=== PATIENT | male | born 1950 | race African-American/Black ===

== ENCOUNTER → 2016-12-03 07:46 | Outpatient (CLI) | payer OTHER ==
[2014-09-20 21:57] VITALS: BMI 50.3
[~2016-12-03 07:46] MED LIST: ALDACTONE50 MG PO; ASPIRIN EC81 M1 PO; BUPROBAN150 MG PO; CARDURA2 MG PO; CELEBREX200 MG PO; COZAAR100 MG PO; FIBERCON625 MG PO; HYDROCODONE-APA1 TAB PO; LIPITOR10 MG PO; NEXIUM40 MG PO; NORVASC10 MG PO; PROZAC20 MG PO; TOPROL XL50 MG PO; VITAMIN D31000 UNIT PO
== END | disposition home or self-care (01) ==
LOC: D.NM 07:46
DX: M25.561 Pain in right knee (principal); M25.562 Pain in left knee

== ENCOUNTER → 2016-12-09 09:40 | Outpatient (CLI) | payer OTHER ==
[2014-09-20 21:57] VITALS: BMI 50.3
[2016-12-09 11:15] LABS: ERYTHROCYTE SEDIMENTATION RATE 8 mm/hr (0-20)
== END | disposition home or self-care (01) ==
LOC: D.LAB 09:40
PROVIDERS: Orthopaedic Surgery
DX: T85.848A Pain due to other internal prosthetic devices, implants and grafts, initial encounter (principal)

== ENCOUNTER 2017-11-03 17:24 | Emergency (ER) | payer MEDICARE ==
[2014-09-20 21:57] VITALS: BMI 50.3
[2017-11-03 20:04] LABS: BASOPHILS 0.1 % (0-2); EOSINOPHILS 1.7 % (0-7); HEMATOCRIT 39.1 % (42.0-54.0); HEMOGLOBIN 12.6 g/dL (13.5-17.5); IMMATURE GRANULOCYTES 0.4 % (0-5); LYMPHOCYTES 14.2 % (15-50); MCH 28.6 pg (26.0-34.0); MCHC 32.2 g/dL (31.0-37.0); MCV 88.9 fL (80.0-100.0); MEAN PLATELET VOLUME 10.7 fL (7.4-10.4); MONOCYTES 11.4 % (2-11); NEUTROPHILS 72.2 % (40-80); PLATELET COUNT 204 10x3/uL (130-400); RDW 13.7 % (11.5-14.5); WBC 10.9 10x3/uL (4.8-10.8)
[2017-11-03 20:19] LABS: INR 1.04 (0.85-1.17); PROTIME 13.2 SECONDS (11.6-15.0)
[2017-11-03 20:25] LABS: ALBUMIN 3.7 g/dL (3.4-5.0); ALKALINE PHOSPHATASE 144 U/L (46-116); ALT (SGPT) 24 U/L (10-68); BILIRUBIN - TOTAL 0.53 mg/dL (0.2-1.3); CALC OSMOLALITY 281 mosm/kg (275-300); CALCIUM 9.1 mg/dL (8.5-10.1); CARBON DIOXIDE 30.8 mmol/L (21.0-32.0); CHLORIDE - SERUM 102 mmol/L (98-107); CREATININE - SERUM 1.1 mg/dL (0.6-1.3); POTASSIUM - SERUM 3.7 mmol/L (3.5-5.1); PROTEIN - SERUM 6.7 g/dL (6.4-8.2); SODIUM 140 mmol/L (136-145); UREA NITROGEN 20 mg/dL (7-18); eGFR NON AFRICAN AMERICAN 71 mL/min (90-120)
[2017-11-03 20:26] LABS: GLUCOSE 102 mg/dL (74-106)
[2017-11-03 20:38] LABS: CKMB 1.8 U/L (0.0-3.6); CREATINE KINASE 134 UL (21-232); THYROID STIMULATING HORMONE 1.13 uIU/mL (0.36-3.74)
[2017-11-03 20:50] LABS: TROPONIN-I < 0.017 ng/mL (0.000-0.060)
== END 2017-11-04 01:23 | disposition home or self-care (01) ==
LOC: D.ER 17:24
PROVIDERS: Family Medicine
DX: I10 Essential (primary) hypertension (principal)

== ENCOUNTER 2018-06-20 22:43 | Emergency (ER) | payer MEDICARE ==
[2014-09-20 21:57] VITALS: BMI 50.3
== END 2018-06-20 22:54 | disposition left against medical advice (07) ==
LOC: D.ER 22:43
DX: R07.9 Chest pain, unspecified (principal)

== ENCOUNTER → 2018-07-01 13:26 | Outpatient (CLI) | payer MEDICARE ==
[2014-09-20 21:57] VITALS: BMI 50.3
== END | disposition home or self-care (01) ==
LOC: D.MRI 13:26
DX: M13.819 Other specified arthritis, unspecified shoulder (principal)

== ENCOUNTER → 2020-07-31 07:46 | Outpatient (CLI) | payer OTHER ==
[2014-09-20 21:57] VITALS: BMI 50.3
== END | disposition home or self-care (01) ==
LOC: D.NM 07:46
PROVIDERS: ATTEND Clinical Nurse Specialist Family Health
DX: M25.561 Pain in right knee (principal)

== ENCOUNTER 2021-05-03 22:40 | Emergency (ER) | payer MEDICARE ==
[~2021-05-03] VITALS: Ht 180.3 cm; Wt 160.5 kg
[2021-05-03 22:45] VITALS: BP 138/61; Ht 180.3 cm; Wt 160.5 kg
[2021-05-03] MEDS ORDERED: BUMETANIDE0.5 MG PO (22:52)
[2021-05-03] MEDS ORDERED: FOLIC ACID1 MG PO (22:52)
[2021-05-03] MEDS ORDERED: COREG25 MG PO (22:52)
[2021-05-03] MEDS ORDERED: HYDRALAZINE HC100 MG (22:53)
[2021-05-03] MEDS ORDERED: ARTHROTEC EC 71 EACH PO (23:32)
== END 2021-05-03 23:47 | disposition home or self-care (01) ==
LOC: D.ER 22:40
DX: S76.111A Strain of right quadriceps muscle, fascia and tendon, initial encounter (principal); I11.0 Hypertensive heart disease with heart failure; I50.9 Heart failure, unspecified; Z79.82 Long term (current) use of aspirin